=== PATIENT | female | born 1985 | race American Indian/Alaskan Native ===

== ENCOUNTER 2016-05-12 08:27 | Outpatient (CLI) | payer MEDICARE ==
[2016-05-12 09:04] LABS: Blood Urea Nitrogen 9 mg/dL (7-17)
[2016-05-12] MEDS ORDERED: NACL ONE (09:05)
--- NOTE | 2016-05-12 10:44 | Cat Scan Report ---
CT ANGIO ABDOMEN/FEMORAL ABDOMINAL AORTA: HISTORY: Atherosclerosis com[place] arteries of extremity with intermittent claudication. TECHNIQUE: Helical CT following IV contrast. Sagittal and coronal reformatted images. 3-dimensional volume rendering technique. COMPARISON: None. FINDINGS: The abdominal aorta is normal caliber throughout. No significant atherosclerotic disease. No aneurysm or dissection. There is less than 10% stenosis in the aorta. The celiac axis, SMA, ADRIAN and bilateral single renal arteries are widely patent with less than 20% stenosis. The bilateral common iliac arteries, external iliac arteries and internal iliac arteries are widely patent with less than 10% stenosis. The bilateral superficial femoral and popliteal arteries are widely patent with less than 20% stenosis. The anterior tibial arteries, posterior tibial arteries and peroneal arteries are widely patent to the ankle with less than 20% stenosis. IMPRESSION: Normal CTA abdomen with femoral runoff. No significant atherosclerotic disease, stenosis or occlusion is appreciated.
== END 2016-05-12 08:28 | disposition home or self-care (01) ==
LOC: CT 08:27
PROVIDERS: ATTEND Radiology Diagnostic Radiology
DX: I70.213 Atherosclerosis of native arteries of extremities with intermittent claudication, bilateral legs (principal); I70.1 Atherosclerosis of renal artery; I70.8 Atherosclerosis of other arteries
CPT/HCPCS: 36415; 75635; 82565; 84520; Q9967

== ENCOUNTER 2017-09-22 11:05 | Outpatient (CLI) | payer MEDICARE ==
--- NOTE | 2017-09-22 13:10 | XRay Report ---
RIGHT HIP RADIOGRAPHS INDICATION: Right hip pain. COMPARISON: 05/12/2016 CT images. FINDINGS: An AP pelvic radiograph with frog-leg projection of the right hip again demonstrate a right femoral neck screw. Mild right femoral head degenerative spurring with possible joint space narrowing medially. Normal left femoral head contour. Imaged bilateral SI joints appear intact. Nonobstructive bowel gas pattern. Left paramidline pelvic and right groin surgical clips also again seen. CONCLUSION: Right hip degenerative and postsurgical changes with few other findings, as above. Thank you for the opportunity to participate in this patient's care.
== END 2017-09-22 11:06 | disposition home or self-care (01) ==
LOC: SPVIMAG 11:05
PROVIDERS: ATTEND Internal Medicine
DX: M16.11 Unilateral primary osteoarthritis, right hip (principal)